=== PATIENT | female | born 1980 | race Hispanic/Latino ===

== ENCOUNTER 2017-05-25 21:08 | Emergency (ER) | payer BC ==
[2017-05-25] MEDS ORDERED: AMOXicillin 250 MG CAP ONE (23:40)
[2017-05-25] MEDS ORDERED: Dexamethasone 10 MG/ML VIAL ONE (23:40)
[2017-05-25] MEDS ORDERED: Ibuprofen 800 MG TAB ONE (23:40)
== END 2017-05-25 23:50 | disposition home or self-care (01) ==
LOC: ERS 21:08
DX: J03.00 Acute streptococcal tonsillitis, unspecified (principal)
CPT/HCPCS: 99282; J1100